=== PATIENT | female | born 1935 | race Caucasian/White ===

== ENCOUNTER → 2016-06-09 | Outpatient (CLI) | payer MEDICARE, BC ==
[~2016-06-09] MED LIST: ACETAMINOPHEN PO; ACETAMINOPHEN650 M4 PO; ACTONEL150 MG; ACTONEL150 MG PO; ALLEGRA PO; ALLEGRA180 MG PO; ALLERGY RELIEF180 MG PO; ALPRAZOLAM PO; ALPRAZOLAM0.25 MG PO; ANEXSIA 7.5/3251 TA1 PO; ANTIVERT PO; ATENOLOL PO; ATENOLOL25 MG PO; ATENOLOL50 MG PO; ATORVASTATIN CA40 MG PO; BENTYL10 MG PO; CALCITRIOL0.5 MCG PO; CALCITROL; CALCIUM ACETAT667 M1 PO; CALCIUM ACETAT667 M2 PO; CALPHRON667 MG PO; CIPRO PO; COLACE PO; COUMADIN PO; COUMADIN1 MG PO; COUMADIN5 MG PO; CRESTOR PO; CRESTOR10 MG PO; CYCLOBENZAPRINE5 MG PO; DEXILANT60 MG PO; ESTRACE PO; ESTRACE1 MG PO; ESTRADIOL1 MG PO; FEOSOL PO; FEXOFENADINE PO; FIBER CON PO; FIBER LAX625 MG; FIBER LAX625 MG PO; FIBER LAXATIVE PO; FIBER LAXATIVE625 MG PO; FIBERCON625 MG PO; FISH OIL PO; FLEXERIL10 M1 PO; FLOMAX0.4 M1 PO; FOSAMAX PO; GYNODIOL2 MG PO; JANTOVEN2 MG PO; K-DUR20 ME1 PO; KCL PO; KEFLEX PO; LIBRAX1 CAP 5/2. PO; LIBRIUM; LIBRIUM PO; LIOTHYRONINE S25 MCG PO; LIPITOR20 MG PO; LORTAB 10-5001 EACH; MACRODANTIN PO; MED FOR IBS; MICRO K PO; MONTELUKAST SOD10 MG PO; PANTOPRAZOLE SO40 MG PO; PHOSLO667 M1 PO; PHOSLO667 MG PO; PREDNISONE PO; PROTONIX PO; PROTONIX20 MG PO; ROCALTROL0.5 MC1 PO; SEE LIST; SINGULAIR PO; SLOW MAG PO; SLOW-MAG64 MG PO; SYNTHROID PO; SYNTHROID0.15 MG PO; SYNTHROID125 PO; TENORMIN25 MG PO; TENORMIN50 MG PO; VITAMIN C500 M1 PO; VITAMIN C500 MG PO; VITAMIN D PO; VITAMIN D250000 UNIT PO; VITAMIN D400 UNI2 PO; VITAMIN D50000 UNIT PO; ZOFRAN PO; [UNRECOGNIZED DRUG - OTHER]; [UNRECOGNIZED DRUG - OTHER] PO
--- NOTE | ~2016-06-09 | NM19 ---
[facility] A Service of [facility] RADIOLOGY TEXT RESULTS PATIENT: TYRELL TSE LOCATION: [facility] : 35 UNIT #: [id number] AGE: [address]: Bear West MD SEX: F ORDER DR: [id number] [facility] [address] [place], [place] [address] [id number] O MR#: [id number] Acc #: [id number] NAME: TYRELL TSE : 1935 SEX: F STUDY DATE/TIME: 06/09/2016 9:57 UNIT: [facility] ROOM: STUDY DESCRIPTION: NM Gastric Emptying Study Attending Physician: Bear West M.D. Referring Physician: Bear West M.D. Ordering Physician: Bear West M.D. Primary Care Physician: Shakir Woody Jr., M.D. MEDICAL IMAGING REPORT This report is preliminary unless electronic signature is present EXAM Gastric emptying scan, 06/09/2016 HISTORY Nausea for approximately 1 year with early satiety and gastroesophageal reflux disease with weight loss. Lower abdominal pain. FINDINGS The patient ingested 572 mcCi of technetium 99m tagged sulfur colloid in eggs. Images of the upper abdomen were obtained for 4 hours. After 1 hour, the stomach was 42% empty and after 2 hours the stomach was 52% empty and after 4 hours the stomach was 85% empty. Normal ranges greater than 60% empty after 2 hours of imaging and greater than 90% empty after 4 hours of imaging. IMPRESSION Delayed gastric emptying after 2 and 4 hours of imaging. Dictated by... Wu Cox M.D. THIS IS AN ELECTRONICALLY VERIFIED REPORT Wu Cox M.D. at 06/10/2016 4:18 PM RORO/mark TD: 06/09/2016 21:41 JOB #: [id number] MEDICAL IMAGING REPORT COPY
== END | disposition home or self-care (01) ==
LOC: CNUC 08:19
DX: K21.9 Gastro-esophageal reflux disease without esophagitis (principal); K30 Functional dyspepsia; R11.0 Nausea; R68.82 Decreased libido; K58.9 Irritable bowel syndrome, unspecified; Z85.850 Personal history of malignant neoplasm of thyroid; Z98.890 Other specified postprocedural states
CPT/HCPCS: 78264; A9541

== ENCOUNTER → 2016-10-13 | Outpatient (CLI) | payer MEDICARE, BC ==
--- NOTE | ~2016-10-13 | CR7 ---
[facility] A Service of [facility] RADIOLOGY TEXT RESULTS PATIENT: TYRELL TSE LOCATION: [facility] : 35 UNIT #: [id number] AGE: [address]: Robby Lee MD SEX: F ORDER DR: [id number] [address] [address] [id number] O MR#: [id number] Acc #: [id number] NAME: TYRELL TSE : 1935 SEX: F STUDY DATE/TIME: 10/13/2016 10:52 UNIT: [facility] ROOM: STUDY DESCRIPTION: CR Abdomen Single AP View Attending Physician: Robby Lee M.D. Referring Physician: Robby Lee M.D. Ordering Physician: Robby Lee M.D. Primary Care Physician: Shakir Woody Jr., M.D. MEDICAL IMAGING REPORT This report is preliminary unless electronic signature is present. EXAM Single view abdomen HISTORY Abdominal pain, low back pain. Followup kidney stones. Pain for several weeks. COMPARISON 02/14/2016 FINDINGS A single view of the abdomen demonstrates multiple calcifications overlying the renal regions bilaterally, predominantly within the mid to lower poles of both kidneys suggesting multiple small intrarenal stones or potentially nephrocalcinosis. No definite stones is seen along the course of the ureters. Normal nonobstructive bowel gas pattern. No organomegaly. Radiodensity in the left upper quadrant may represent a medicinal tablet or be external to the patient. Mild degenerative change lower lumbar spine. IMPRESSION Extensive calcifications overlying the mid to lower poles of both kidneys suggesting intrarenal stones or possibly nephrocalcinosis. No definite stones seen along the course of the ureters or within the bladder. Dictated by... Yo Aburto M.D. THIS IS AN ELECTRONICALLY VERIFIED REPORT Yo Aburto M.D. at 10/15/2016 12:28 PM [facility] A Service [facility] RADIOLOGY TEXT RESULTS PATIENT: TYRELL TSE LOCATION: [facility] : 35 UNIT #: [id number] AGE: [address]: Robby Lee MD SEX: F ORDER DR: AMARJIT/minnie TD: 10/14/2016 21:17 JOB #: [id number] MEDICAL IMAGING REPORT Page 1 of 1
== END | disposition home or self-care (01) ==
LOC: SRAD 10:26
DX: N20.0 Calculus of kidney (principal); N28.89 Other specified disorders of kidney and ureter
CPT/HCPCS: 74000

== ENCOUNTER → 2016-12-23 | Outpatient (CLI) | payer MEDICARE, BC ==
--- NOTE | ~2016-12-23 | CT2 ---
[facility] A Service [facility] RADIOLOGY TEXT RESULTS PATIENT: TYRELL TSE LOCATION: [facility] : 35 UNIT #: [id number] AGE: [address]: Lalo Gómez MD SEX: F ORDER DR: [id number] [place] [id number] O MR#: [id number] Acc #: [id number] NAME: TYRELL TSE : 1935 SEX: F STUDY DATE/TIME: 12/23/2016 9:14 UNIT: [facility] ROOM: STUDY DESCRIPTION: CT Abd and Pelv W Cont Attending Physician: Lalo Gómez Jr., M.D. Referring Physician: Lalo Gómez Jr., M.D. Ordering Physician: Lalo Gómez Jr., M.D. Primary Care Physician: Shakir Woody Jr., M.D. MEDICAL IMAGING REPORT This report is preliminary unless electronic signature is present. EXAM CT abdomen and pelvis with contrast INDICATIONS Pelvic and left lower quadrant abdominal pain for the past 3 weeks. PROCEDURE Contrast-enhanced CT of the abdomen and pelvis. This CT exam was performed with one or more of the following radiation dose reduction techniques: automatic exposure control, adjustment of mA and/or kV according to patient size, and iterative reconstruction. COMPARISON 07/04/2015 FINDINGS Abdomen with contrast: The included lung bases are clear. Liver, spleen show no acute abnormality. Adrenal glands are unremarkable. Pancreas is atrophic but shows no acute findings. Unremarkable gallbladder. Bowel loops are nondilated. Appendix is normal. Bilateral nonobstructing renal calculi measuring up to 6 mm. There is no hydronephrosis. Heavy atherosclerotic calcification at the origin of the right renal artery. Pelvis with contrast: Previous hysterectomy. No pelvic mass or fluid. No aggressive appearing bone lesion. IMPRESSION 1. No acute findings in the abdomen or pelvis. 2. Multiple bilateral nonobstructing renal calculi. There is no hydronephrosis or appreciable radiodense ureteral calculus when [facility] A Service [facility] RADIOLOGY TEXT RESULTS PATIENT: TYRELL TSE LOCATION: [facility] #: [id number] : 35 UNIT #: [id number] AGE: [address]: Lalo Gómez MD SEX: F ORDER DR: allowing for the presence of contrast. Dictated by... Rahat Recio M.D. THIS IS AN ELECTRONICALLY VERIFIED REPORT Rahat Recio M.D. at 12/25/2016 7:03 AM EED/to TD: 12/23/2016 18:14 JOB #: [id number] MEDICAL IMAGING REPORT Page 1 of 1
[2016-12-23 08:20] LABS: POC - CREATININE 0.74 mg/dL (0.44-1.03); POC - GFR >60.0 mL/min (>60)
== END | disposition home or self-care (01) ==
LOC: SCT 08:08
PROVIDERS: Surgery
DX: R10.30 Lower abdominal pain, unspecified (principal); N20.0 Calculus of kidney
CPT/HCPCS: 74177; 82565; Q9967